=== PATIENT | male | born 1990 | race Caucasian/White ===

== ENCOUNTER → 2016-11-12 | Day surgery (SDC) | payer OTHER ==
[~2016-11-12] VITALS: Ht 175.3 cm; Wt 72.6 kg
[~2016-11-12] MED LIST: ACETAMINOPH W/CODEINE #3 TAB UD PO PRN; BACITRACIN OINT 30GM As Ordered ONE; GLYCOPYRROLATE INJ 0.2 MG/ML 2 ML VIAL As Ordered ONE; HYDROmorphone HCL 2 MG/ML 1ML VIAL (J1170) As Ordered ONE; KETOROLAC 60 MG/2 ML VIAL (J1885) As Ordered ONE; LIDOCAINE 2% INJ 100 MG/5 ML SDV (FOR ANES.) As Ordered ONE; LIDOCAINE W/EPINEPHRINE 1% 20ML VIAL As Ordered ONE; LR 1,000 ML IV SCH; METOCLOPRAMIDE INJ 10MG/2ML VIAL (J2765) As Ordered ONE; METOCLOPRAMIDE INJ 10MG/2ML VIAL (J2765) IV PRN; MIDAZOLAM INJ 2 MG/2 ML VIAL (J2250) As Ordered ONE; MORPHINE 10 MG/ML 1ML VIAL IV PRN; NAPR500T2 PO; NEOSTIGMINE 1MG/ML 5 ML SYRINGE (J2710) As Ordered ONE; NEXI40CA PO; ONDANSETRON 4MG/2ML VIAL (J2405) As Ordered ONE; ONDANSETRON 4MG/2ML VIAL (J2405) IV PRN; PERCOCET 5MG/325MG TAB PO PRN; PROMETHAZINE INJ 25 MG/ML VIAL (J2550) IV ONE; PROPOFOL 200 MG/20 ML VIAL As Ordered ONE; ROCURONIUM BROMIDE 50 MG/5 ML VIAL As Ordered ONE; fentaNYL 100 MCG/2 ML INJECTION (J3010) IV PRN; fentaNYL 250 MCG/5 ML INJECTION (J3010) As Ordered ONE
[2016-11-12 15:30] VITALS: BP 122/66
--- NOTE | 2016-11-13 15:13 | RO ---
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 PROCEDURE: Right superficial parotidectomy. A fat graft was not done during the procedure because the defect was very minimal. SURGEON: Dr. Chapin Jones REPORTING SPECIALIST: BREA Machado ANESTHESIA: General. DESCRIPTION OF PROCEDURE: Under general anesthesia, with the patient intubated, the patient was prepped and draped in the usual manner. I marked out the skin incision. The nerve monitor was used during the procedure. The electrodes were hooked up prior to the procedure. In infiltrated with lidocaine and epinephrine. I divided the skin and subcutaneous tissues and dissected the tissues off the parotid gland anteriorly. The mass was seen inferiorly and had a bluish discoloration. I made an incision along the anterior border of the sternocleidomastoid muscle and then dissected in this plane from inferior to superiorly. I then the parotid from the cartilage of the canal wall. I then dissected down until the facial nerve was identified. Once this was done then I followed the nerve anteriorly and then inferiorly. The tumor was inferiorly so I selected to move it inferiorly. It turned out that it was a vascular lesion so once the blood supply was divided, the lesion was minimal. First, I followed the inferior branch of the first cervical branch down into the neck and then the ramus mandibularis branch and buccal branches were identified and followed. Once they were out of the way, then I was able to deliver the specimen from the wound. The specimen was between the cervical and ramus branch. As a result we did not have to remove much parotid tissue. The patient tolerated the procedure well. Less than 50 mL estimated blood loss. The nerve was stimulated and found to be intact at the end of the procedure. The wound was irrigated and then through a separate stab wound, I put in a David-Toussaint drain. That was sutured in with #2-0 silk. Once that was done then I closed the wound with interrupted #4-0 Vicryl and then #5-0 nylon. The patient tolerated the procedure well. The patient was extubated and transferred to the recovery room in excellent condition. Edited: 11/13/2016 [id number] vlm
== END | disposition home or self-care (01) ==
LOC: M SDC 06:03
PROVIDERS: ATTEND Otolaryngology
DX: D11.0 Benign neoplasm of parotid gland (principal); R12 Heartburn; F41.9 Anxiety disorder, unspecified; Z79.899 Other long term (current) drug therapy
CPT/HCPCS: 42415; 88305; J1170; J1885; J2250; J2405; J2710; J2765; J3010

== ENCOUNTER 2017-01-03 11:17 | Emergency (ER) | payer OTHER ==
[~2017-01-03] VITALS: Ht 175.3 cm; Wt 72.6 kg
[~2017-01-03 11:17] MED LIST changes: -ACETAMINOPH W/CODEINE #3 TAB UD PO PRN; -BACITRACIN OINT 30GM As Ordered ONE; -GLYCOPYRROLATE INJ 0.2 MG/ML 2 ML VIAL As Ordered ONE; -HYDROmorphone HCL 2 MG/ML 1ML VIAL (J1170) As Ordered ONE; -KETOROLAC 60 MG/2 ML VIAL (J1885) As Ordered ONE; -LIDOCAINE 2% INJ 100 MG/5 ML SDV (FOR ANES.) As Ordered ONE; -LIDOCAINE W/EPINEPHRINE 1% 20ML VIAL As Ordered ONE; -LR 1,000 ML IV SCH; -METOCLOPRAMIDE INJ 10MG/2ML VIAL (J2765) As Ordered ONE; -METOCLOPRAMIDE INJ 10MG/2ML VIAL (J2765) IV PRN; -MIDAZOLAM INJ 2 MG/2 ML VIAL (J2250) As Ordered ONE; -MORPHINE 10 MG/ML 1ML VIAL IV PRN; -NEOSTIGMINE 1MG/ML 5 ML SYRINGE (J2710) As Ordered ONE; -ONDANSETRON 4MG/2ML VIAL (J2405) As Ordered ONE; -ONDANSETRON 4MG/2ML VIAL (J2405) IV PRN; -PERCOCET 5MG/325MG TAB PO PRN; -PROMETHAZINE INJ 25 MG/ML VIAL (J2550) IV ONE; -PROPOFOL 200 MG/20 ML VIAL As Ordered ONE; -ROCURONIUM BROMIDE 50 MG/5 ML VIAL As Ordered ONE; -fentaNYL 100 MCG/2 ML INJECTION (J3010) IV PRN; -fentaNYL 250 MCG/5 ML INJECTION (J3010) As Ordered ONE
[2017-01-03 13:22] LABS: ANION GAP 6 MEQ/L (8-16); BLOOD UREA NITROGEN 18 MG/DL (7-18); CALCIUM LEVEL 9.3 MG/DL (8.5-10.1); CARBON DIOXIDE LEVEL 29 MEQ/L (21-32); CHLORIDE LEVEL 106 MEQ/L (98-107); CREATININE FOR GFR 1.05 MG/DL (0.70-1.30); GLOMERULAR FILTRATION RATE > 60.0 (>60); GLUCOSE, FASTING 97 MG/DL (70-105); POTASSIUM SERUM 3.9 MEQ/L (3.5-5.1); SODIUM LEVEL 141 MEQ/L (136-145)
--- NOTE | 2017-01-03 13:25 | REP ---
CHEST, TWO VIEWS: There is no evidence of acute infiltrate. No pleural effusion is seen. The heart is normal in size. The mediastinal silhouette is unremarkable. The visualized osseous structures are intact. IMPRESSION: No acute pulmonary disease. Signed by Tera Ibanez MD 01/03/2017 05:43 P
[2017-01-03 13:31] LABS: BASO % 0.7 % (0.0-1.0); EOS # 0.2 K/mm3 (0.0-0.50); LARGE UNSTAINED CELL # 0.1 K/mm3 (0.0-0.4); LARGE UNSTAINED CELL % 1.4 % (0.0-4.0); LYMPH # 1.8 K/mm3 (1.5-6.5); LYMPH % 26.6 % (24.0-44.0); MEAN CORPUSCULAR HEMOGLOBIN 33.3 pg (27.0-33.0); MEAN CORPUSCULAR HGB CONC 34.9 g/dl (32.0-36.5); MEAN CORPUSCULAR VOLUME 95.7 fl (80.0-96.0); MONO # 0.4 K/mm3 (0.0-0.8); MONO % 5.6 % (0.0-5.0); NEUTROPHILS % 62.6 % (36.0-66.0); PLATELET COUNT, AUTOMATED 185 k/mm3 (150-450); RED CELL DISTRIBUTION WIDTH 12.4 % (11.5-14.5); WHITE BLOOD COUNT 6.3 K/mm3 (4.0-10.0)
[2017-01-03 14:03] VITALS: BP 134/81
[2017-01-03] MEDS ORDERED: ISOVUE-370 76% 100ML VIAL (Q9967) As Ordered ONE (14:13)
--- NOTE | 2017-01-03 14:56 | REP ---
CT ANGIO CHEST: TECHNIQUE: Axial contrast enhanced images from the thoracic inlet to the upper abdomen using 100 mL Isovue 370 intravenous contrast material with multiplanar reformations. The lungs show no infiltrate or suspicious nodular opacities. There is no evidence of mediastinal, hilar or chest wall lymphadenopathy. There is no pleural or pericardial effusion. The heart is normal in size. The thoracic aorta is normal in caliber with no aneurysm or dissection. The visualized upper abdominal structures are unremarkable. The visualized osseous structures are unremarkable. IMPRESSION: Negative CT chest with IV contrast. Signed by Tera Ibanez MD 01/03/2017 05:45 P
[2017-01-03] MEDS ORDERED: INDO50CA PO (15:18)
--- NOTE | 2017-01-04 08:23 | ECGEPIP ---
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 Order Number: [id number] Reading MD: Rhona Ramirez Measurements Intervals [place] Rate: 56 P: 2 FL: 120 QRS: 31 QRSD: 101 T: 43 QT: 423 QTc: 411 Interpretive Statements SINUS BRADYCARDIA SIMILAR 03/23/16 Electronically Signed On 01-04-2017 8:23:36 EDT by Rhona Ramirez
== END 2017-01-03 15:32 | disposition home or self-care (01) ==
LOC: M ED 12:52
DX: R07.89 Other chest pain (principal); K21.9 Gastro-esophageal reflux disease without esophagitis; Z79.899 Other long term (current) drug therapy
CPT/HCPCS: 36415; 71020; 71260; 80048; 85025; 85379; 93005; 99283; Q9967